=== PATIENT | female | born 2000 | race Caucasian/White ===

== ENCOUNTER 2021-08-26 19:22 | Emergency (ER) | payer BC, OTHER ==
[~2021-08-26] VITALS: Ht 175.3 cm; Wt 86.2 kg
--- OUTSIDE RECORDS SUMMARY | 2021-08-26 19:28 | XMS REPORT ---
Author Author Corina Campa Organization [facility] Address [address] [place], [place] [id number] Care Team Providers Care Plant Puller Name Role Phone Odilia Campa PCP Odilia Campa PreferredProvider Allergies and Adverse Reactions Name Reaction Notes hydrocodone-acetaminophen vomiting Plan of Treatment Planned Activity Comments Planned Date Planned Time Plan/Goal Injection Of Immunization, Initial 07/23/2020 12:00 AM VITAMIN B12 & FOLATE 08/13/2021 12:00 AM VITAMIN B12 & FOLATE 08/13/2021 12:00 AM VITAMIN D (25 HYDROXY) 08/13/2021 12:00 AM Medications Active Name Start Date Estimated Completion Date SIG Co mments Pantoprazole Sodium 40 MG Oral Tablet Delayed Release 05/14/2021 09/11/2021 Take 1 tablet by mouth once daily for 30 days Gas Relief (simethicone) oral OTC cetirizine 10 mg tablet take 1 tablet (10 mg) by oral route once daily famotidine 40 mg oral tablet 05/31/2021 09/28/2021 alberto e 1 tablet (40 mg) by oral route once daily at bedtime for 30 days lactase 3,000 unit oral tablet take 1 tab let by oral route daily citalopram 40 mg oral tablet 07/10/2021 11/07/2021 alberto e 1 tablet (40 mg) by oral route once daily for 30 days Sprintec (28) 0.25-35 mg-mcg oral tablet 07/24/2021 take 1 tablet by oral route once daily for 84 days montelukast 10 mg oral tablet 08/13/2021 09/12/2021 ta ke 1 tablet (10 mg) by oral route once daily in the evening for 30 days Seroquel 25 mg oral tablet 08/13/2021 09/12/2021 take 1 tablet (25 mg) by oral route once daily at bedtime Name Start Date Expiration Date SIG Comments Lo Loestrin Fe 1 mg-10 mcg (24)/10 mcg (2) oral tablet 08/31/2015 09/30/2015 take 1 tablet by oral route once daily for 30 days Depo-Provera 150 mg/mL intramuscular suspension 10/16/2015 01/14/2016 inject 1 milliliter (150 mg) by intramuscular route every 3 months for 90 days albuterol sulfate 0.63 mg/3 mL inhalation solution for nebul ization 11/01/2015 12/01/2015 use HFA Q 4-5 Hrs PRN shortness of air benzonatate 100 mg oral capsule 08/06/2018 08/20/2018 Take 1 tab at night prior to bed Prozac 10 mg oral capsule 12/15/2018 12/29/2018 take 1 take 1 capsule daily x 1week then everyother day x 1 week Bactrim DS 800-160 mg oral tablet 06/14/2019 06/21/2019 take 1 tablet by oral route every 12 hours for 7 days prednisone 20 mg oral tablet 10/31/2019 11/05/2019 alberto e 2 tablets (40 mg) by oral route once daily for 5 days Augmentin 875-125 mg oral tablet 10/31/2019 11/07/2019 take 1 tablet by oral route every 12 hours for 7 days Diflucan 150 mg oral tablet 01/13/2020 take 1 tablet (150 mg) by oral route once, repeat in 72 hours Reglan 5 mg oral tablet 03/27/2020 04/26/2020 take 1 tablet AC azithromycin 500 mg oral tablet 06/20/2020 06/21/2020 take 4 tablets (2,000 mg) by oral route once for 1 day Bactrim DS 800-160 mg oral tablet 06/23/2020 06/30/2020 take 1 tablet by oral route every 12 hours for 7 days Provera 10 mg oral tablet 06/27/2020 07/07/2020 take 1 tablet (10 mg) by oral route once daily for 10 days azithromycin 500 mg oral tablet 06/27/2020 06/28/2020 take 2 tablets (1,000 mg) by oral route once for 1 day trazodone 50 mg oral tablet 10/04/2020 02/01/2021 take 1-2 tablet by oral route once daily at bedtime for 30 days dicyclomine 10 mg oral capsule 01/15/2021 03/16/2021 t germaine 1 capsule (10 mg) by oral route AC and HS day for 30 days Xifaxan oral tablet 550 mg 05/17/2021 05/31/2021 take 1 tablet (550 mg) by oral route 3 times per day for 14 days Solosec 2 gram oral granules del release in packet 07/09/2021 07/10/2021 take 1 packet (2 gram) and sprinkle contents onto applesauce, yogurt or pudding and take within 30 minutes by oral route once for 1 day Flagyl 500 mg oral tablet 07/10/2021 07/17/2021 take 1 tablet (500 mg) by oral route 2 times per day for 7 days Discontinued Name Start Date Discontinued Date SIG Comments ibuprofen 200 mg oral tablet 04/08/2017 alberto e 2 tablets (400 mg) by oral route every 4-6 hours as needed with food Zyrtec 10 mg oral tablet 03/15/2020 take 1 tablet (10 mg) by oral route once daily not taking tretinoin 0.01 % topical gel 11/19/2018 05/05/2019 qian ly to the affected area(s) by topical route once daily at bedtime Depo-Provera 150 mg/mL intramuscular suspension 05/05/2019 03/15/2020 inject 1 milliliter (150 mg) by intramuscular route every 3 months Lexapro 10 mg oral tablet 08/24/2019 12/02/2019 take 1 tablet (10 mg) by oral route once daily for 30 days Vraylar 1.5 mg oral capsule 04/10/2020 04/10/2020 take 1 capsule (1.5 mg) by oral route once daily for 30 days Lexapro 20 mg oral tablet 03/15/2020 03/15/2020 take 1 tablet (20 mg) by oral route once daily for 30 days escitalopram oxalate 20 mg oral tablet 02/02/2020 03/15/2020 TAKE 1 TABLET BY MOUTH ONCE DAILY FOR 30 DAYS Vraylar 3 mg oral capsule 04/10/2020 05/14/2020 take 1 capsule (3 mg) by oral route once daily for 30 days Celexa 20 mg oral tablet 04/10/2020 08/08/2020 take 1 tablet (20 mg) by oral route once daily for 30 days ondansetron mg oral tablet,disintegrating 04/10/20202019 Take one tablet every 8 hours as needed nausea dicyclomine 10 mg oral capsule 05/02/2020 05/16/2020 t germaine 1 capsule by oral route for 30 days AC and HS cephalexin 500 mg oral capsule 06/20/2020 06/27/2020 t germaine 1 capsule (500 mg) by oral route every 12 hours for 10 days Citalopram Hydrobromide 20 MG Oral Tablet 08/06/2020 020 Take 1 tablet by mouth once daily for 30 days lorazepam 0.5 mg oral tablet 10/04/2020 06/27/2021 alberto e 1 tablet (0.5 mg) by oral route 2 times per day as needed not taking ondansetron 8 mg oral tablet,disintegrating 10/04/20202020 one tablet every 8 hours as needed for nausea not taking Problem List Description Status Onset Diarrhea, unspecified type Active 06/27/2021 Epigastric pain Active 06/27/2021 Vital Signs Date Time BP-Sys(mm[Hg] BP-Hayley(mm[Hg]) HR(bpm) RR(rpm) Temp WT HT HC BMI BSA BMI Percentile O2 Sat(%) 08/13/2021 4:50:00 PM 120 mm[Hg] 74 mm[Hg] 63 {beats}/min 98.1 F 203.125 lbs 69 in 29.996 kg/m2 2.1179 m2 99 % 07/23/2021 2:03:00 PM 115 mm[Hg] 80 mm[Hg] 76 {beats}/min 98.2 F 20 0 lbs 69 in 29.53 kg/m2 2.10 m2 07/09/2021 2:39:00 PM 116 mm[Hg] 72 mm[Hg] 80 {beats}/min 98.8 F 20 2 lbs 69 in 29.8299 kg/m2 2.112 m2 06/27/2021 9:40:00 AM 110 mm[Hg] 60 mm[Hg] 63 {beats}/min 98.418 F 198 lbs 69 in 29.24 kg/m2 2.09 m2 98 % 05/31/2021 12:00:00 PM 118 mm[Hg] 70 mm[Hg] 72 {beats}/min 18 rpm 98.1 F 204 lbs 69 in 30.1252 kg/m2 2.1225 m2 96 % 05/17/2021 11:49:00 AM 124 mm[Hg] 70 mm[Hg] 68 {beats}/min 18 rpm 98.6 F 203 lbs 69 in 29.98 kg/m2 2.12 m2 98 % 02/25/2021 12:11:00 PM 122 mm[Hg] 72 mm[Hg] 80 {beats}/min 18 rpm 98.8 F 197.5 lbs 69 in 29.1654 kg/m2 2.0884 m2 98 % 01/17/2021 1:43:00 PM 89 {beats}/min 98.8 F 97 % 01/15/2021 11:29:00 AM 124 mm[Hg] 66 mm[Hg] 70 {beats}/min 18 rpm 97.5 F 200 lbs 69 in 29.53 kg/m2 2.1015 m2 97 % 11/30/2020 4:48:00 PM 126 mm[Hg] 70 mm[Hg] 71 {beats}/min 18 rpm 98.1 F 199.25 lbs 69 in 29.42 kg/m2 2.10 m2 97 % 10/30/2020 12:40:00 PM 65 {beats}/min 98.2 F 98 % 10/04/2020 11:15:00 AM 122 mm[Hg] 64 mm[Hg] 91 {beats}/min 18 rpm 98.1 F 191.5 lbs 69 in 28.2793 kg/m2 2.0564 m2 0 % 96 % 09/03/2020 4:04:00 PM 110 mm[Hg] 70 mm[Hg] 112 {beats}/min 18 rpm 98.6 F 191.5 lbs 69 in 28.28 kg/m2 2.06 m2 0 % 98 % 08/08/2020 1:31:00 PM 133 mm[Hg] 74 mm[Hg] 60 {beats}/min 97.9 F 188.5 lbs 69 in 27.8363 kg/m2 2.0402 m2 89 % 06/27/2020 9:14:00 AM 120 mm[Hg] 74 mm[Hg] 82 {beats}/min 97.2 F 184 lbs 69 in 27.17 kg/m2 2.02 m2 0 % 06/20/2020 3:40:00 PM 122 mm[Hg] 78 mm[Hg] 98 {beats}/min 18 rpm 98.7 F 188.375 lbs 60 in 36.7891 kg/m2 1.9019 m2 0 % 100 % 04/17/2020 11:27:00 AM 116 mm[Hg] 66 mm[Hg] 79 {beats}/min 16 rpm 97.3 F 188 lbs 69 in 27.76 kg/m2 2.04 m2 89.1 % 98 % 04/10/2020 11:18:00 AM 126 mm[Hg] 70 mm[Hg] 67 {beats}/min 18 rpm 97.7 F 188.25 lbs 69 in 27.7994 kg/m2 2.0389 m2 89.3 % 100 % 03/27/2020 11:41:00 AM 104 mm[Hg] 60 mm[Hg] 80 {beats}/min 16 rpm 97.7 F 189 lbs 69 in 27.91 kg/m2 2.04 m2 89.6 % 97 % 03/15/2020 12:08:00 PM 118 mm[Hg] 76 mm[Hg] 61 {beats}/min 18 rpm 97.8 F 96 % 01/13/2020 3:41:00 PM 118 mm[Hg] 72 mm[Hg] 84 {beats}/min 17 rpm 98.2 F 186.5 lbs 60 in 36.4229 kg/m2 1.8924 m2 97.6 % 99 % 01/02/2020 10:46:00 AM 122 mm[Hg] 66 mm[Hg] 98 {beats}/min 18 rpm 98.2 F 181 lbs 69 in 26.73 kg/m2 2.00 m2 86.6 % 98 % 12/02/2019 10:07:00 AM 114 mm[Hg] 72 mm[Hg] 72 {beats}/min 18 rpm 98.1 F 182.75 lbs 69 in 26.9872 kg/m2 2.0089 m2 87.5 % 97 % 10/31/2019 7:31:00 PM 134 mm[Hg] 88 mm[Hg] 98 {beats}/min 16 rpm 98.1 F 186.375 lbs 69 in 27.52 kg/m2 2.03 m2 89.1 % 97 % 09/30/2019 11:21:00 AM 122 mm[Hg] 66 mm[Hg] 73 {beats}/min 18 rpm 98.1 F 183 lbs 69 in 27.0241 kg/m2 2.0102 m2 87.8 % 98 % 08/24/2019 1:19:00 PM 124 mm[Hg] 68 mm[Hg] 97 {beats}/min 18 rpm 98.1 F 180.375 lbs 69 in 26.64 kg/m2 2.00 m2 86.8 % 97 % 07/22/2019 10:54:00 AM 124 mm[Hg] 66 mm[Hg] 87 {beats}/min 18 rpm 98.6 F 176 lbs 69 in 25.9904 kg/m2 1.9714 m2 84.6 % 98 % 06/14/2019 2:54:00 PM 114 mm[Hg] 74 mm[Hg] 87 {beats}/min 14 rpm 98.1 F 176 lbs 69 in 25.99 kg/m2 1.97 m2 84.7 % 97 % 05/05/2019 11:36:00 AM 122 mm[Hg] 70 mm[Hg] 89 {beats}/min 18 rpm 98.1 F 174 lbs 69 in 25.695 kg/m2 1.9602 m2 83.7 % 98 % 02/15/2019 2:09:00 PM 118 mm[Hg] 70 mm[Hg] 82 {beats}/min 16 rpm 98.6 F 169 lbs 69 in 24.96 kg/m2 1.93 m2 80.6 % 98 % 12/15/2018 9:52:00 AM 130 mm[Hg] 80 mm[Hg] 62 {beats}/min 18 rpm 98.6 F 162 lbs 69 in 23.923 kg/m2 1.8914 m2 74.8 % 98 % 12/10/2018 2:24:00 PM 120 mm[Hg] 80 mm[Hg] 77 {beats}/min 16 rpm 98.6 F 165 lbs 69 in 24.37 kg/m2 1.91 m2 77.7 % 98 % 08/06/2018 2:20:00 PM 102 mm[Hg] 60 mm[Hg] 64 {beats}/min 16 rpm 98 F 155.25 lbs 69 in 22.9262 kg/m2 1.8516 m2 67.9 % 98 % 07/20/2018 2:21:00 PM 110 mm[Hg] 70 mm[Hg] 86 {beats}/min 16 rpm 98.1 F 156.375 lbs 69 in 23.09 kg/m2 1.86 m2 69.5 % 99 % 07/12/2018 9:11:00 AM 108 mm[Hg] 70 mm[Hg] 81 {beats}/min 16 rpm 98.6 F 160 lbs 69 in 23.6276 kg/m2 1.8797 m2 73.8 % 96 % 07/02/2018 3:00:00 PM 142 mm[Hg] 90 mm[Hg] 97 {beats}/min 16 rpm 99 F 161.375 lbs 69 in 23.83 kg/m2 1.89 m2 75.3 % 97 % 01/26/2018 10:59:00 AM 124 mm[Hg] 78 mm[Hg] 78 {beats}/min 18 rpm 98.5 F 164.5 lbs 69 in 24.2922 kg/m2 1.9059 m2 79.3 % 99 % 06/02/2017 3:54:00 PM 124 mm[Hg] 62 mm[Hg] 67 {beats}/min 18 rpm 99.3 F 159.5 lbs 69 in 23.55 kg/m2 1.88 m2 76.6 % 98 % 04/08/2017 1:25:00 PM 112 mm[Hg] 82 mm[Hg] 72 {beats}/min 16 rpm 159.125 lbs 69 in 23.4984 kg/m2 1.8745 m2 76.7 % 98 % 10/31/2015 4:14:00 PM 118 mm[Hg] 60 mm[Hg] 73 {beats}/min 18 rpm 98 F 153 lbs 69 in 22.59 kg/m2 1.84 m2 75.8 % 100 % 10/16/2015 2:31:00 PM 102 mm[Hg] 68 mm[Hg] 72 {beats}/min 18 rpm 98.1 F 154.25 lbs 69 in 22.7785 kg/m2 1.8456 m2 77.3 % 97 % 08/31/2015 4:03:00 PM 110 mm[Hg] 70 mm[Hg] 83 {beats}/min 18 rpm 98.4 F 156.375 lbs 69 in 23.09 kg/m2 1.86 m2 79.8 % 99 % Social History Name Description Comments Tobacco Never smoker 01/15/2021 - /2020 - 10/04/2020 - 09/30/2019 - 07/22/2019 - Vapor Cigarettes Never 01/15/2021 - History of Procedures Date Ordered Description Order Status 08/31/2015 12:00 AM URINE TEST Reviewed 10/16/2015 12:00 AM URINE TEST Reviewed 10/16/2015 12:00 AM THER/PROPH/DIAG INJ SC/IM Reviewed 10/16/2015 12:00 AM Depo Provera Injection, 150 mg Reviewed 01/17/2016 12:00 AM THER/PROPH/DIAG INJ SC/IM Reviewed 01/17/2016 12:00 AM Depo Provera Injection, 150 mg Reviewed 04/10/2016 12:00 AM THER/PROPH/DIAG INJ SC/IM Reviewed 04/10/2016 12:00 AM Depo Provera Injection, 150 mg Reviewed 07/09/2016 12:00 AM THER/PROPH/DIAG INJ SC/IM Reviewed 07/09/2016 12:00 AM Depo Provera Injection, 150 mg Reviewed 10/13/2016 12:00 AM THER/PROPH/DIAG INJ SC/IM Reviewed 10/13/2016 12:00 AM Depo Provera Injection, 150 mg Reviewed 01/12/2017 12:00 AM THER/PROPH/DIAG INJ SC/IM Reviewed 01/12/2017 12:00 AM Depo Provera Injection, 150 mg Reviewed 04/08/2017 12:00 AM Depo Provera Injection, 150 mg Reviewed 04/08/2017 12:00 AM THER/PROPH/DIAG INJ SC/IM Reviewed 04/08/2017 12:00 AM Depo Provera Injection, 150 mg Reviewed 07/08/2017 12:00 AM THER/PROPH/DIAG INJ SC/IM Reviewed 07/08/2017 12:00 AM Depo Provera Injection, 150 mg Reviewed 12/30/2017 12:00 AM THER/PROPH/DIAG INJ SC/IM Reviewed 12/30/2017 12:00 AM Depo Provera Injection, 150 mg Reviewed 03/24/2018 12:00 AM THER/PROPH/DIAG INJ SC/IM Reviewed 03/24/2018 12:00 AM Depo Provera Injection, 150 mg Reviewed 07/20/2018 12:00 AM URNLS DIP STICK/TABLET RGNT AUTO W/O SOPHIE ROSCOPY Returned 08/16/2018 12:00 AM IMMUNIZATION ADMIN Reviewed 08/16/2018 12:00 AM FLU VAC NO PRSV 4 SHANE 3 YRS+ Reviewed 11/19/2018 12:00 AM THER/PROPH/DIAG INJ SC/IM Reviewed 11/19/2018 12:00 AM Depo Provera Injection, 150 mg Reviewed 12/10/2018 12:00 AM COMPLETE CBC W/AUTO DIFF WBC Returned 12/10/2018 12:00 AM COMPREHEN METABOLIC PANEL Returned 12/10/2018 12:00 AM ASSAY OF FREE THYROXINE Returned 12/10/2018 12:00 AM ASSAY THYROID STIM HORMONE Returned 12/13/2018 12:00 AM ECHO EXAM OF ABDOMEN Returned 12/15/2018 12:00 AM COMPLETE CBC W/AUTO DIFF WBC Returned 12/15/2018 12:00 AM COMPREHEN METABOLIC PANEL Returned 12/15/2018 12:00 AM ASSAY OF LIPASE Returned 12/15/2018 12:00 AM CHORIONIC GONADOTROPIN TEST Returned 12/15/2018 12:00 AM HIV-1 AG EIA Returned 12/15/2018 12:00 AM ACUTE HEPATITIS PANEL Returned 12/15/2018 12:00 AM SYPHILIS TEST NON-TREP QUANT Returned 12/16/2018 12:00 AM IADNA-DNA/RNA PROBE TQ 12-25 Returned 12/31/2018 12:00 AM COMPREHEN METABOLIC PANEL Returned 12/31/2018 12:[address] ABDOMEN W/O & W/DYE Returned 01/12/2019 12:00 AM COMPREHEN METABOLIC PANEL Returned 01/13/2019 12:00 AM Consult/Referral Reviewed 01/14/2019 12:00 AM Tick Panel Returned 01/26/2019 12:00 AM HETEROPHILE ANTIBODY SCREEN Returned 02/15/2019 12:00 AM THER/PROPH/DIAG INJ SC/IM Reviewed 02/15/2019 12:00 AM Depo Provera Injection, 150 mg Reviewed 05/05/2019 12:00 AM Depo Provera Injection, 150 mg Reviewed 06/14/2019 12:00 AM URINE CULTURE/COLONY COUNT Reviewed 07/22/2019 12:00 AM COMPLETE CBC W/AUTO DIFF WBC Reviewed 07/22/2019 12:00 AM COMPREHEN METABOLIC PANEL Reviewed 07/22/2019 12:00 AM ASSAY THYROID STIM HORMONE Reviewed 07/22/2019 12:00 AM HEPATIC FUNCTION PANEL Reviewed 07/22/2019 12:00 AM Depo Provera Injection, 150 mg Reviewed 07/22/2019 12:00 AM HPV VACCINE NON VALENT IM Reviewed 07/22/2019 12:00 AM MENINGOCOCCAL VACCINE IM Reviewed 07/22/2019 12:00 AM FLU VAC NO PRSV 4 SHANE 3 YRS+ Reviewed 08/22/2019 12:00 AM HPV VACCINE NON VALENT IM Reviewed 08/22/2019 12:00 AM THER/PROPH/DIAG INJ SC/IM Reviewed 10/10/2019 12:00 AM THER/PROPH/DIAG INJ SC/IM Reviewed 10/10/2019 12:00 AM Depo Provera Injection, 150 mg Reviewed 01/02/2020 12:00 AM Depo Provera Injection, 150 mg Reviewed 01/02/2020 12:00 AM THER/PROPH/DIAG INJ SC/IM Reviewed 01/13/2020 3:47 PM URINALYSIS AUTO W/O SCOPE Reviewed 01/13/2020 12:00 AM ALLERGEN SPECIFIC IGE Returned 01/13/2020 12:00 AM COMPREHEN METABOLIC PANEL Returned 01/13/2020 12:00 AM ASSAY THYROID STIM HORMONE Returned 01/27/2020 12:00 AM IMMUNIZATION ADMIN Reviewed 01/27/2020 12:00 AM HPV VACCINE NON VALENT IM Reviewed 03/15/2020 12:00 AM COMPLETE CBC W/AUTO DIFF WBC Returned 03/15/2020 12:00 AM COMPREHEN METABOLIC PANEL Returned 03/15/2020 12:00 AM FECES CULTURE AEROBIC BACT Returned 03/15/2020 12:00 AM X-RAY EXAM SERIES ABDOMEN Returned 05/09/2020 12:00 AM SARS-CoV-2 non-CDC lab test Returned 06/20/2020 3:41 PM URINALYSIS AUTO W/O SCOPE Reviewed 06/20/2020 12:00 AM URINE CULTURE/COLONY COUNT Returned 06/20/2020 12:00 AM URINE BACTERIA CULTURE Returned 06/20/2020 12:00 AM THER/PROPH/DIAG INJ SC/IM Reviewed 06/20/2020 12:00 AM Rocephin 250 Mg Injection Reviewed 07/23/2020 12:00 AM FLU VAC NO PRSV 4 SHANE 3 YRS+ Reviewed 08/08/2020 1:58 PM URINE TEST Reviewed 08/08/2020 12:00 AM CHLAMYDIA CULTURE Reviewed 08/08/2020 12:00 AM CULTURE SCREEN ONLY Reviewed 08/08/2020 12:00 AM TRICHOMONAS VAGINALIS AMPLIF Reviewed 10/30/2020 12:00 AM COVID-19 Testing Returned 10/24/2020 12:00 AM Moderna Covid-19 Vaccine Reviewed 11/21/2020 12:00 AM Moderna Covid-19 Vaccine Reviewed 01/17/2021 12:00 AM COVID-19 Testing Reviewed 02/25/2021 12:00 AM X-RAY EXAM OF FOOT Reviewed 05/17/2021 12:00 AM ECHO EXAM OF ABDOMEN Returned 05/17/2021 12:00 AM COMPLETE CBC W/AUTO DIFF WBC Returned 05/17/2021 12:00 AM COMPREHEN METABOLIC PANEL Returned 05/17/2021 12:00 AM ASSAY OF LIPASE Returned 05/17/2021 12:00 AM ASSAY OF AMYLASE Returned 05/31/2021 12:00 AM IADNA-DNA/RNA PROBE TQ 10-19 Returned 06/12/2021 12:00 AM ACUTE HEPATITIS PANEL Returned 07/09/2021 12:00 AM ASSAY OF GONADOTROPIN ([facility]) Reviewed 07/09/2021 12:00 AM ASSAY OF GONADOTROPIN (LH) Reviewed 07/09/2021 12:00 AM ASSAY THYROID STIM HORMONE Reviewed 07/24/2021 12:00 AM SPECIMEN HANDLING OFFICE-LAB Reviewed 07/24/2021 12:00 AM CHLAMYDIA CULTURE Reviewed 07/24/2021 12:00 AM N.GONORRHOEAE DNA AMP PROB Reviewed 07/24/2021 12:00 AM CYTOPATH C/V THIN LAYER Reviewed 07/24/2021 12:00 AM DETECT AGENT NOS DNA AMP Reviewed 07/24/2021 12:00 AM TRICHOMONAS VAGINALIS AMPLIF Reviewed 08/13/2021 12:00 AM INFLUENZA VAC 4 VALENT PRSRV FREE 3 YRS PLUS IM Reviewed Results Summary Date and Description Results 07/22/2019 11:58 AM WBC 4.4 RBC 4.90 HGB 14.60 g /dLHCT 43.70 %MCV 89.0 fLMCH 29.80 pgMCHC 33.40 g/dLRDW SD 38 fLRDW CV 11.70 %MPV 9.40 fLPLT 250 x10E3/uLNRBC# 0.00 NRBC% 0.0 %NEUT 53.3 %LYMP 30.7 %MONO 11.4 %EOS 3.0 %BASO 0.9 #NEUT 2.33 #LYMP 1.34 #MONO 0.50 #EOS 0.13 #BASO 0.04 MANUAL DIFF NOT IND GLUCOSE 92 SODIUM 138 POTASSIUM 4.3 CHLORIDE 105.0 mmol/LCO2 23 BUN 10.0 mg/dLCREATININE 0.790 mg/dLSGOT/AST 90 SGPT/ALT 53 ALK PHOS 66 TOTAL PROTEIN 7.7 ALBUMIN 4.9 TOTAL BILI 0.5 CALCIUM 10.10 mg/dLAGE 19 GFR NonAA 94 GFR AA 114 eGFR 94 mL/min/1.73meGFR AA* >60 mL/min/1.73mTSH 1.66 01/13/2020 3:47 PM Clarity Ur Clear Urine-Color Yellow Glucose Ur-sCnc Neg Bilirub Ur Ql Neg Ketones Ur Ql Strip Neg Sp Gr Ur Qn >=1.030 Hgb Ur Ql Strip Neg pH Ur-LsCnc 6.0 Prot Ur Ql Strip Neg Urobilinogen Ur-mCnc 0.2 Nitrite Ur Ql Strip Neg WBC # Ur Trace 06/20/2020 3:47 PM Clarity Ur Cloudy Urine-[place] r Yellow Glucose Ur-sCnc Neg Bilirub Ur Ql Neg Ketones Ur Ql Strip Trace Sp Gr Ur Qn 1.015 Hgb Ur Ql Strip Trace-Intact pH Ur-LsCnc 6,0 Prot Ur Ql Strip 100 Urobilinogen Ur-mCnc 0.2 Nitrite Ur Ql Strip Neg WBC # Ur Moderate 08/08/2020 1:58 PM Test, Urine negati ve 01/17/2021 9:54 AM [id number] NOT DETECTED 07/09/2021 3:30 PM FSH 1.4 TSH W/REFLEX 2.14 History Of Immunizations Name Date Admin Mfg Name Mfg Code Trade Name Lot# Route Inj Vis Given Vis Pub CVX Influenza 08/16/2018 [employer] SKB FLULAVAL [id number] Intramuscu lar Left Deltoid 08/16/2018 10/26/2021 158 Influenza 07/22/2019 [employer]Smith[employer] SKB FLULAVAL [id number] Intramuscul ar Left Deltoid 07/22/2019 10/26/2021 150 HPV 07/22/2019 [employer] MSD Gardasil 9 [id number] Intramusc ular Left Deltoid 07/22/2019 10/26/2021 165 HPV 07/22/2019 [employer] MSD Gardasil 9 [id number] Intramusc ular Left Deltoid 07/22/2019 10/26/2021 165 Meningococcal 07/22/2019 [employer] NOV MENVEO [id number] Intramuscular Right Arm 07/22/2019 10/26/2021 136 HPV 08/22/2019 [employer] MSD GARDASIL [id number] Intramuscu lar Right Arm 08/22/2019 10/26/2021 165 HPV 08/22/2019 [employer] MSD Gardasil 9 [id number] Intramus cular Left Arm 08/24/2019 10/26/2021 165 HPV 08/22/2019 [employer] MSD Gardasil 9 [id number] Intramus cular Left Arm 08/24/2019 10/26/2021 165 HPV 01/27/2020 [employer] MSD Gardasil 9 [id number] Intramuscu lar Left Deltoid 01/27/2020 10/26/2021 165 Influenza 07/23/2020 GlaxoSmith[employer] SKB FLULAVAL [id number] Intramuscul ar Left Arm 07/23/2020 10/26/2021 158 Covid-19 10/24/2020 Moderna [employer] MOD Moderna COVID-19 Vacci ne [id number] Intramuscular Left Arm 10/24/2020 09/25/2020 207 Covid-19 11/21/2020 Moderna [employer] MOD Moderna COVID-19 Vaccin e [id number] Intramuscular Right Deltoid 11/21/2020 09/25/2020 207 Influenza 08/13/2021 Gl[employer]Smith[employer] SKB Flulaval quadrivalent 3 [id number] Intramuscular Right Deltoid 08/13/2021 05/31/2021 158 History of Past Illness Name Date of Onset Comments Bronchitis Constipation IBS (irritable bowel syndrome) Diarrhea, unspecified type 06/27/2021 Epigastric pain 06/27/2021 Missed menses Aug 31 2015 4:04PM Abnormal menses Aug 31 2015 4:04PM Contraceptive use education Aug 31 2015 4:04PM Acne vulgaris Oct 16 2015 2:37PM Encounter for initial prescription of injectable contr aceptive Oct 16 2015 2:37PM Contraceptive counseling (Depo-Provera) Oct 16 2015 3:23PM Acute nasopharyngitis Oct 31 2015 4:17PM Viral gastroenteritis Oct 31 2015 4:17PM Cough Oct 31 2015 4:17PM Contraceptive counseling (Depo-Provera) Jan 17 2016 1:58PM Contraceptive counseling (Depo-Provera) Apr 10 2016 2:47PM Contraceptive counseling (Depo-Provera) Jul 09 2016 9:00AM Contraceptive counseling (Depo-Provera) Oct 13 2016 1:34PM Contraceptive counseling (Depo-Provera) Jan 12 2017 1:15PM Contraception management Apr 08 2017 1:28PM Contraceptive counseling (Depo-Provera) Apr 08 2017 2:38PM Acute upper respiratory infection, unspecified Jun 02 2017 3:57PM Other viral agents as the cause of diseases classified elsewhere Jun 02 2017 3:57PM Contraceptive counseling (Depo-Provera) Jul 08 2017 1:25PM Contraceptive counseling (Depo-Provera) Oct 06 2017 2:18PM Contraceptive counseling (Depo-Provera) Dec 30 2017 3:48PM Acute upper respiratory infection, unspecified Jan 26 2018 1 1:02AM Other viral agents as the cause of diseases classified elsewhere Jan 26 2018 11:02AM Contraceptive counseling (Depo-Provera) Mar 24 2018 1:30PM Contraceptive counseling (Depo-Provera) Jun 09 2018 4:22PM Grief reaction Jul 02 2018 3:05PM Situational depression Jul 02 2018 3:05PM Grief reaction Jul 12 2018 9:20AM Depression Jul 20 2018 2:28PM Anxiety Jul 20 2018 2:28PM Polyuria Jul 20 2018 2:28PM Polyuria Jul 20 2018 4:23PM Depression Aug 06 2018 2:24PM Acute upper respiratory infection, unspecified Aug 06 2018 2:24PM Other viral agents as the cause of diseases classified elsewhere Aug 06 2018 2:24PM Flu Vaccine Aug 16 2018 10:51AM Contraceptive counseling (Depo-Provera) Aug 25 2018 12:20PM Contraceptive counseling (Depo-Provera) Nov 19 2018 9:07AM Fatigue Dec 10 2018 2:28PM Diarrhea Dec 10 2018 2:28PM Depression Dec 10 2018 2:28PM Transaminitis Dec 13 2018 8:10AM Vomiting Dec 13 2018 8:10AM Diarrhea Dec 13 2018 8:10AM Vomiting Dec 15 2018 9:54AM Nausea Dec 15 2018 9:54AM Diarrhea Dec 15 2018 9:54AM High risk sexual behavior Dec 15 2018 9:54AM Transaminitis Dec 15 2018 9:54AM Depression Dec 15 2018 9:54AM Diarrhea Dec 16 2018 12:10PM Elevated liver enzymes Dec 31 2018 7:55AM Transaminitis Dec 31 2018 5:07PM Elevated liver enzymes Jan 12 2019 9:49AM Transaminitis Jan 14 2019 9:44AM Fatigue Jan 14 2019 9:44AM Fatigue Jan 26 2019 8:17AM Contraceptive counseling (Depo-Provera) Feb 15 2019 9:12AM Encounter for occupational health examination Feb 15 2019 2 :11PM Encounter for surveillance of injectable contraceptive Apr 252018 11:36AM Lower abdominal pain Jun 14 2019 2:56PM Dysuria Jun 14 2019 2:56PM Establishing care with new doctor, encounter for Jul 22 2019 10:56AM Routine health maintenance Jul 22 2019 10:56AM Encounter for surveillance of injectable contraceptive Jun 272018 10:56AM Need for HPV vaccine Aug 22 2019 12:38PM Anxiety Aug 24 2019 1:21PM Anxiety Sep 30 2019 11:23AM Contraceptive counseling (Depo-Provera) Oct 10 2019 4:01PM Acute pansinusitis Oct 31 2019 7:33PM 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 Anxiety Dec 02 2019 10:10AM Anxiety Jan 02 2020 10:47AM Depression Jan 02 2020 10:47AM Contraception management Jan 02 2020 10:47AM Vaginal hakeem Jan 13 2020 3:47PM Elevated liver enzymes Jan 13 2020 3:47PM Screening for thyroid disorder Jan 13 2020 3:47PM Need for HPV vaccination Jan 27 2020 1:44PM Diarrhea Mar 15 2020 12:08PM Vomiting Mar 15 2020 12:08PM Anxiety Mar 15 2020 12:08PM control counseling Mar 15 2020 12:08PM Depression Apr 10 2020 11:19AM Anxiety Apr 10 2020 11:19AM Diarrhea, unspecified type Mar 27 2020 11:43AM Nausea Mar 27 2020 11:43AM Dyspepsia Mar 27 2020 11:43AM Functional diarrhea Apr 17 2020 11:27AM Irritable bowel syndrome with diarrhea Apr 17 2020 11:27AM Close exposure to severe acute respiratory syndrome co ronavirus 2 (SARS-CoV-2) May 09 2020 4:02PM Anxiety May 16 2020 8:39AM IBS (irritable bowel syndrome) May 16 2020 8:39AM Dysuria Jun 20 2020 3:41PM Urinary Tract Infection, Site Not Specified Jun 20 2020 3:4 1PM Vaginal discharge Jun 20 2020 3:41PM Amenorrhea Jun 27 2020 9:20AM Chlamydia Jun 27 2020 9:20AM Contraception management Jun 27 2020 9:20AM Vaginal Discharge Jun 27 2020 9:20AM Flu Vaccine Jul 23 2020 7:42PM History of chlamydia infection Aug 08 2020 1:34PM Contraceptive management Aug 08 2020 1:34PM Amenorrhea Aug 08 2020 1:34PM Anxiety Sep 03 2020 4:03PM Depression Sep 03 2020 4:03PM Insomnia Sep 03 2020 4:03PM Weight gain Sep 03 2020 4:03PM Night sweats Sep 03 2020 4:03PM Anxiety Oct 04 2020 11:18AM Depression Oct 04 2020 11:18AM Insomnia Oct 04 2020 11:18AM Encounter for laboratory testing for COVID-19 virus Oct 30 8:05AM Cough Oct 30 2020 8:05AM Fatigue Oct 30 2020 8:05AM Myalgia Oct 30 2020 8:05AM Encounter for administration of COVID-19 vaccine Nov 13 2020 9:53AM Encounter for administration of COVID-19 vaccine Nov 20 2020 1:55PM Surgical wound present Nov 30 2020 4:50PM IBS (irritable bowel syndrome) Jan 15 2021 11:31AM Anxiety Jan 15 2021 11:31AM Depression Jan 15 2021 11:31AM Attention and concentration deficit Jan 15 2021 11:31AM Close exposure to severe acute respiratory syndrome co ronavirus 2 (SARS-CoV-2) Jan 17 2021 8:47AM Cough Jan 17 2021 8:47AM Congestion of respiratory tract Jan 17 2021 8:47AM Headache Jan 17 2021 8:47AM Pain of left heel Feb 25 2021 12:13PM IBS (irritable bowel syndrome) May 17 2021 11:52AM Nausea May 17 2021 11:52AM Diarrhea May 17 2021 11:52AM Abdominal pain May 17 2021 11:52AM Constipation May 17 2021 11:52AM Diarrhea May 31 2021 12:02PM IBS (irritable bowel syndrome) May 31 2021 12:02PM GERD (gastroesophageal reflux disease) May 31 2021 12:02PM Hepatomegaly Jun 12 2021 4:28PM Epigastric pain Jun 27 2021 9:50AM Diarrhea, unspecified type Jun 27 2021 9:50AM Hot flashes Jul 09 2021 3:11PM Acute vaginitis Jul 09 2021 2:44PM Other specified bacterial agents as the cause of disea ses classified elsewhere Jul 09 2021 2:44PM Hot flashes Jul 09 2021 2:44PM Excessive sweating Jul 09 2021 2:44PM Heat intolerance Jul 09 2021 2:44PM Routine gynecological examination Jul 23 2021 2:06PM Contraceptive management Jul 23 2021 2:06PM Hyperhidrosis Jul 23 2021 2:06PM Fatigue Aug 13 2021 4:53PM Anxiety Aug 13 2021 4:53PM Insomnia Aug 13 2021 4:53PM Depression Aug 13 2021 4:53PM Flu Vaccine Aug 13 2021 5:38PM Cough Aug 13 2021 4:53PM Sore throat Aug 13 2021 4:53PM Seasonal allergies Aug 13 2021 4:53PM Mood disorder Aug 13 2021 4:53PM Payers Insurance Name Company Name Plan Name Plan Number Policy Number Carlos cy Group Number Start Date BCBS Bcbs [facility] [id number] N/ A [facility] Med Occupational Medicine [id number] N/A History of Encounters Visit Date Visit Type Provider 08/13/2021 Office visit Odilia COREAS RN 07/23/2021 Office visit Sharon ruelas BENZENE STILL UTILITY OPERATOR 07/10/[address] [facility] [address] Billy Rogers MD 07/09/2021 Office visit Sharon ruelas BENZENE STILL UTILITY OPERATOR 06/27/[address] Billy Rogers MD 05/31/2021 Office visit Odilia COREAS RN 05/17/2021 Office visit Odilia COREAS RN 02/25/2021 Office visit Maricel Almanzar APR N 01/17/2021 Office visit Riya COREAS RN 01/15/2021 Office visit Odilia COREAS RN 11/30/2020 Office visit Riya COREAS RN 11/21/2020 Nurse visit Raj Moya MD 10/30/2020 Office visit Riya COREAS RN 10/24/2020 Nurse visit Raj Moya MD 10/04/2020 Office visit Odilia COREAS RN 09/03/2020 Office visit Odilia COREAS RN 08/08/2020 Office visit Sharon ruelas BENZENE STILL UTILITY OPERATOR 07/23/2020 Nurse visit Odilia COREAS RN 06/27/2020 Office visit Sharon ruelas BENZENE STILL UTILITY OPERATOR 06/20/2020 Office visit Riya COREAS RN 05/14/2020 Office visit Odilia COREAS RN 05/09/2020 Nurse visit Odilia COREAS RN 04/17/2020 Office visit Eliezer Rivas MD 04/10/2020 Office visit Odilia COREAS RN 03/27/2020 Office visit Eliezer Rivas MD 03/15/2020 Office visit Odilia COREAS RN 01/27/2020 Nurse visit Trung Quiroz APR N 01/13/2020 Office visit Odilia COREAS RN 01/02/2020 Office visit Odilia COREAS RN 12/02/2019 Office visit Odilia COREAS RN 10/31/2019 Office visit Odilia COREAS RN 10/10/2019 Nurse visit Odilia COREAS RN 09/30/2019 Office visit Odilia COREAS RN 08/24/2019 Office visit Odilia COREAS RN 08/22/2019 Nurse visit Odilia COREAS RN 07/22/2019 Office visit Odilia COREAS RN 06/14/2019 Office visit Leslie Kwok BENZENE STILL UTILITY OPERATOR 05/05/2019 Office visit Leslie Kwok BENZENE STILL UTILITY OPERATOR 02/15/2019 Office visit Leslie Kwok BENZENE STILL UTILITY OPERATOR 02/15/[address] Jessica Mera er DO 12/15/[address] Jessica Mera er DO 12/10/2018 Office visit 12/10/[address] Jessica Mera er DO 11/19/2018 Nurse visit Trung Quiroz APR N 08/25/2018 Nurse visit Maricel Almanzar APR N 08/16/[address] Jessica Mera er DO 08/06/[address] Jessica Mera er DO 07/20/[address] Jessica Mera er DO 07/12/[address] Jessica Mera er DO 07/02/[address] Jessica Mera er DO 06/09/[address] Jessica Mera er DO 03/24/[address] Jessica Mera er DO 01/26/[address] Jessica Mera er DO 12/30/[address] Jessica Mera er DO 10/06/[address] Jessica Mera er DO 07/08/[address] Jessica Mera er DO 06/02/[address] Jessica Mera er DO 04/08/[address] Jessica Mera er DO 01/12/2017 Nurse visit Trung Quiroz APR N 10/13/2016 Nurse visit Trung Quiroz APR N 07/09/[address] Jessica Mera er DO 04/10/[address] Jessica Mera er DO 01/17/[address] Jessica Mera er DO 10/31/[address] Jessica Mera er DO 10/16/[address] Jessica Mera er DO 08/31/[address] Jessica Mera er DO
--- OUTSIDE RECORDS SUMMARY | 2021-08-26 19:28 | XMS REPORT ---
Author Author Corina Campa Organization [facility] Address [address] [place], [place] [id number] Care Team Providers Care Water Conservationist Name Role Phone Odilia Campa PCP Odilia [...] Trace 06/20/2020 3:47 PM Clarity Ur Cloudy Urine-[place] r Yellow Glucose Ur-sCnc Neg Bilirub Ur Ql Neg Ketones Ur Ql Strip Trace Sp Gr Ur Qn 1.015 Hgb Ur Ql Strip Trace-Intact pH Ur-LsCnc 6,0 Prot Ur Ql Strip 100 Urobilinogen Ur-mCnc 0.2 Nitrite Ur Ql Strip Neg WBC # Ur Moderate 08/08/2020 1:58 PM Test, Urine negati ve 01/17/2021 9:54 AM [id number] NOT DETECTED 07/09/2021 3:30 PM FSH 1.4 [...] [employer] MSD Gardasil 9 [id number] Intramusc ular Left Deltoid 07/22/2019 10/26/2021 165 HPV 07/22/2019 [employer] MSD Gardasil 9 [id number] Intramusc ular Left Deltoid 07/22/2019 10/26/2021 165 Meningococcal 07/22/2019 [employer]. NOV MENVEO [id number] Intramuscular Right Arm 07/22/2019 10/26/2021 136 HPV 08/22/2019 [employer] MSD GARDASIL [id number] Intramuscu lar Right Arm 08/22/2019 10/26/2021 165 HPV 08/22/2019 [employer] MSD Gardasil 9 [id number] Intramus cular Left Arm 08/24/2019 10/26/2021 165 HPV 08/22/2019 [employer] MSD Gardasil 9 [id number] Intramus cular Left Arm 08/24/2019 10/26/2021 165 HPV 01/27/2020 [employer] MSD Gardasil 9 [id number] Intramuscu lar Left Deltoid 01/27/2020 10/26/2021 165 Influenza 07/23/2020 GlaxoSmithKline SKB FLULAVAL [id number] Intramuscul ar Left Arm 07/23/2020 10/26/2021 158 Covid-19 10/24/2020 Moderna [employer] MOD Moderna COVID-19 Vacci ne [id number] Intramuscular Left Arm 10/24/2020 09/25/2020 207 Covid-19 11/21/2020 Moderna [employer] MOD Moderna COVID-19 Vaccin e [id number] Intramuscular Right Deltoid 11/21/2020 09/25/2020 207 Influenza [...] 4:53PM Flu Vaccine Aug 13 2021 5:38PM Payers Insurance Name Company Name Plan Name Plan Number Policy Number Carlos cy Group Number Start Date BCBS Bcbs [facility] [id number] N/ A [facility] Occupational Medicine [id number] N/A History of Encounters Visit Date Visit Type Provider 08/13/2021 Office visit Odilia COREAS RN 07/23/2021 Office visit Sharon ruelas TECHNICAL CUSTOMER SUPPORT SPECIALIST 07/10/[address] [facility] [address] Billy Rogers MD 07/09/2021 Office visit Sharon ruelas TECHNICAL CUSTOMER SUPPORT SPECIALIST 06/27/[address] Billy Rogers MD [...] COREAS RN 08/08/2020 Office visit Sharon ruelas TECHNICAL CUSTOMER SUPPORT SPECIALIST 07/23/2020 Nurse visit Odilia COREAS RN 06/27/2020 Office visit Sharon ruelas TECHNICAL CUSTOMER SUPPORT SPECIALIST 06/20/2020 Office visit Riya COREAS RN 05/14/2020 [...] Odilia COREAS RN 06/14/2019 Office visit Leslie Sundar TECHNICAL CUSTOMER SUPPORT SPECIALIST 05/05/2019 Office visit Leslie Sundar TECHNICAL CUSTOMER SUPPORT SPECIALIST 02/15/2019 Office visit Leslie Kwok TECHNICAL CUSTOMER SUPPORT SPECIALIST 02/15/[address] Jessica Mera er [...] er DO 10/31/[address] Jessica eMra er DO 10/16/[address] Jessica Mera er DO 08/31/[address] Jessica Mear er DO
--- OUTSIDE RECORDS SUMMARY | 2021-08-26 19:28 | XMS REPORT ---
Author Corina Davies Organization [facility] Address [address] [place], [place] [id number] Care Team Providers Care Regional Recruiter Name Role Phone Sharon Mitchell PCP Odilia Campa PreferredProvider Allergies and Adverse Reactions Name Reaction Notes hydrocodone-acetaminophen vomiting Plan of Treatment Planned Activity Comments Planned Date Planned Time Plan/Goal Injection Of Immunization, Initial 07/23/2020 12:00 AM Chlamydia 07/24/2021 12:00 AM Gonorrhea 07/24/2021 12:00 AM Pap smear auto thin prep w manual MD screen 07/24/2021 12:00 AM TRICHOMONAS AMPLIFIED 07/24/2021 12:00 AM TRICHOMONAS AMPLIFIED 07/24/2021 12:00 AM Medications Active Name Start Date [...] oral route once daily for 84 days Name Start Date Expiration Date SIG Comments [...] route once daily for 30 days ondansetron 8 mg oral tablet,disintegrating 04/10/20202019 Take one tablet [...] HC BMI BSA BMI Percentile O2 Sat(%) 07/23/2021 2:03:00 PM 115 mm[Hg] 80 mm[Hg] 76 {beats}/min 98.2 F 20 0 lbs 69 in 29.5345 kg/m2 2.1015 m2 07/09/2021 2:39:00 PM 116 mm[Hg] 72 mm[Hg] 80 {beats}/min 98.8 F 20 2 lbs 69 in 29.83 kg/m2 2.11 m2 06/27/2021 9:40:00 AM 110 mm[Hg] 60 mm[Hg] 63 {beats}/min 98.418 F 198 lbs 69 in 29.2392 kg/m2 2.091 m2 98 % 05/31/2021 12:00:00 PM 118 mm[Hg] 70 mm[Hg] 72 {beats}/min 18 rpm 98.1 F 204 lbs 69 in 30.13 kg/m2 2.12 m2 96 % 05/17/2021 11:49:00 AM 124 mm[Hg] 70 mm[Hg] 68 {beats}/min 18 rpm 98.6 F 203 lbs 69 in 29.9776 kg/m2 2.1172 m2 98 % 02/25/2021 12:11:00 PM 122 mm[Hg] 72 mm[Hg] 80 {beats}/min 18 rpm 98.8 F 197.5 lbs 69 in 29.17 kg/m2 2.09 m2 98 % 01/17/2021 1:43:00 PM 89 {beats}/min 98.8 F 97 % 01/15/2021 11:29:00 AM 124 mm[Hg] 66 mm[Hg] 70 {beats}/min 18 rpm 97.5 F 200 lbs 69 in 29.5345 kg/m2 2.1015 m2 97 % 11/30/2020 4:48:00 [...] Description Comments Tobacco Never smoker 01/15/2021 - 2020 - 10/04/2020 - 09/30/2019 - 07/22/2019 - [...] Returned 12/16/2018 12:00 AM IADNA-DNA/RNA PROBE TQ 12- Returned 12/31/2018 12:00 AM COMPREHEN METABOLIC PANEL [...] Returned 05/31/2021 12:00 AM IADNA-DNA/RNA PROBE TQ 12-25 Returned 06/12/2021 12:00 AM ACUTE HEPATITIS PANEL Returned 07/09/2021 12:00 AM ASSAY OF GONADOTROPIN (FSH) Returned 07/09/2021 12:00 AM ASSAY OF GONADOTROPIN (LH) Returned 07/09/2021 12:00 AM ASSAY THYROID STIM HORMONE Returned Results Summary Date and Description Results 07/22/2019 [...] Trace 06/20/2020 3:47 PM Clarity Ur Cloudy Urine-[place] r Yellow Glucose Ur-sCnc Neg Bilirub Ur Ql Neg Ketones Ur Ql Strip Trace Sp Gr Ur Qn 1.015 Hgb Ur Ql Strip Trace-Intact pH Ur-LsCnc 6,0 Prot Ur Ql Strip 100 Urobilinogen Ur-mCnc 0.2 Nitrite Ur Ql Strip Neg WBC # Ur Moderate 08/08/2020 1:58 PM Test, Urine negati ve 01/17/2021 9:54 AM [id number] NOT DETECTED History Of Immunizations Name Date Admin Mfg Name Mfg Code Trade Name Lot# Route Inj Vis Given Vis Pub CVX Influenza 08/16/2018 GlaxoSmithKline SKB FLULAVAL [id number] Intramuscu lar Left Deltoid 08/16/2018 10/26/2021 158 Influenza 07/22/2019 GlaxoSmithKline SKB FLULAVAL [id number] Intramuscul ar Left Deltoid 07/22/2019 10/26/2021 150 HPV 07/22/2019 Merck & Co., Inc. MSD Gardasil 9 [id number] Intramusc ular Left Deltoid 07/22/2019 10/26/2021 165 HPV 07/22/2019 Merck & Co., Inc. MSD Gardasil 9 [id number] Intramusc ular Left Deltoid 07/22/2019 10/26/2021 165 Meningococcal 07/22/2019 [employer]. NOV MENVEO [id number] Intramuscular Right Arm 07/22/2019 10/26/2021 136 HPV 08/22/2019 Merck & Co., Inc. MSD GARDASIL [id number] Intramuscu lar Right Arm 08/22/2019 10/26/2021 165 HPV 08/22/2019 Merck & Co., Inc. MSD Gardasil 9 [id number] Intramus cular Left Arm 08/24/2019 10/26/2021 165 HPV 08/22/2019 Merck & Co., Inc. MSD Gardasil 9 [id number] Intramus cular Left Arm 08/24/2019 10/26/2021 165 HPV 01/27/2020 Merck & Co., Inc. MSD Gardasil 9 [id number] Intramuscu lar Left Deltoid 01/27/2020 10/26/2021 165 Influenza 07/23/2020 GlaxoSmithKline SKB FLULAVAL [id number] Intramuscul ar Left Arm 07/23/2020 10/26/2021 158 Covid-19 10/24/2020 Moderna [employer] Inc. MOD Moderna COVID-19 Vacci ne [id number] Intramuscular Left Arm 10/24/2020 09/25/2020 207 Covid-19 11/21/2020 [employer] [place] Moderna COVID-19 Vaccin e [id number] Intramuscular Right Deltoid 11/21/2020 09/25/2020 207 History of Past Illness Name Date of [...] 2021 2:06PM Hyperhidrosis Jul 23 2021 2:06PM Payers Insurance Name Company Name Plan Name Plan Number Policy Number Carlos cy Group [id number] Occupational Medicine [id number] N/A History of Encounters Visit Date Visit Type Provider 07/23/2021 Office visit Sharon ruelas SQL SSRS DEVELOPER 07/10/2021 [facility] Dr[facility] Billy Rogers MD 07/09/2021 Office visit Sharon ruelas SQL SSRS DEVELOPER 06/27/[address] Billy Rogers MD 05/31/2021 Office visit Odilia COREAS RN 05/17/2021 Office visit Odilia COREAS RN 02/25/2021 Office visit Maricel Almanzar APR N 01/17/2021 Office visit Riya COREAS RN 01/15/2021 Office visit Odilia COREAS RN 11/30/2020 Office visit Riya CROEAS RN 11/21/2020 Nurse visit Raj Moya MD 10/30/2020 Office visit Riya COREAS RN 10/24/2020 Nurse visit Raj Moya MD 10/04/2020 Office visit Odilia COREAS RN 09/03/2020 Office visit Odilia COREAS RN 08/08/2020 Office visit Sharon Gil Negrito n SQL SSRS DEVELOPER 07/23/2020 Nurse visit Odilia COREAS RN 06/27/2020 Office visit Sharon HerreraRupal ruelas SQL SSRS DEVELOPER 06/20/2020 Office visit Riya COREAS RN 05/14/2020 [...] COREAS RN 06/14/2019 Office visit Leslie Kwok SQL SSRS DEVELOPER 05/05/2019 Office visit Leslie Kwok SQL SSRS DEVELOPER 02/15/2019 Office visit Leslie Kwok SQL SSRS DEVELOPER 02/15/[address] Jessica Mera er [...]
--- OUTSIDE RECORDS SUMMARY | 2021-08-26 19:28 | XMS REPORT ---
Author Author Corina Campa Organization [facility] Address [address] [place], [place] [address] Care Team Providers Care Incendiaries Supervisor Name Role Phone Odilia Campa PCP Odilia [...] Trace 06/20/2020 3:47 PM Clarity Ur Cloudy Urine-[place] r Yellow Glucose Ur-sCnc Neg Bilirub Ur Ql Neg Ketones Ur Ql Strip Trace Sp Gr Ur Qn 1.015 Hgb Ur Ql Strip Trace-Intact pH Ur-LsCnc 6,0 Prot Ur Ql Strip 100 Urobilinogen Ur-mCnc 0.2 Nitrite Ur Ql Strip Neg WBC # Ur Moderate 08/08/2020 1:58 PM Test, Urine negati ve 01/17/2021 9:54 AM [id number] NOT DETECTED 07/09/2021 3:30 PM FSH 1.4 [...] [employer]ck & [employer]., Inc. MSD Gardasil 9 [id number] Intramusc ular Left Deltoid 07/22/2019 10/26/2021 165 HPV 07/22/2019 Merck & Co., Inc. MSD Gardasil 9 [id number] Intramusc ular Left Deltoid 07/22/2019 10/26/2021 165 Meningococcal 07/22/2019 [employer]. NOV MENVEO [id number] Intramuscular Right Arm 07/22/2019 10/26/2021 136 HPV 08/22/2019 Merck & Co., Inc. MSD GARDASIL [id number] Intramuscu lar Right Arm 08/22/2019 10/26/2021 165 HPV 08/22/2019 Merck & Co., Inc. MSD Gardasil 9 [id number] Intramus cular Left Arm 08/24/2019 10/26/2021 165 HPV 08/22/2019 Merck & Co., Inc. MSD Gardasil 9 [id number] Intramus cular Left Arm 08/24/2019 10/26/2021 165 HPV 01/27/2020 Merck & Co., Inc. MSD Gardasil 9 [id number] Intramuscu lar Left Deltoid 01/27/2020 10/26/2021 165 Influenza 07/23/2020 GlaxoSmithKline SKB FLULAVAL [id number] Intramuscul ar Left Arm 07/23/2020 10/26/2021 158 Covid-19 10/24/2020 Moderna [employer] MOD Moderna COVID-19 Vacci ne [id number] Intramuscular Left Arm 10/24/2020 09/25/2020 207 Covid-19 11/21/2020 Moderna [employer] MOD Moderna COVID-19 Vaccin e [id number] Intramuscular Right Deltoid 11/21/2020 09/25/2020 207 Influenza [...] cy Group Number Start Date BCBS Bcbs [facility] [id number] N/ A [facility] Occupational Medicine [id number] N/A History of Encounters Visit Date Visit Type Provider 08/13/2021 Office visit Odilia COREAS RN 07/23/2021 Office visit Sharon ruelas MULTIMEDIA TECHNICIAN 07/10/[address] [facility] [address] Billy Rogers MD 07/09/2021 Office visit Sharon ruelas MULTIMEDIA TECHNICIAN 06/27/[address] Billy Rogers MD [...] COREAS RN 08/08/2020 Office visit Sharon ruelas MULTIMEDIA TECHNICIAN 07/23/2020 Nurse visit Odilia COREAS RN 06/27/2020 Office visit Sharon ruelas MULTIMEDIA TECHNICIAN 06/20/2020 Office visit Riya COREAS RN 05/14/2020 [...] COREAS RN 06/14/2019 Office visit Leslie Sundar MULTIMEDIA TECHNICIAN 05/05/2019 Office visit Leslie Sundar MULTIMEDIA TECHNICIAN 02/15/2019 Office visit Leslie Kwok MULTIMEDIA TECHNICIAN 02/15/[address] Jessica Mera er [...]
--- OUTSIDE RECORDS SUMMARY | 2021-08-26 19:29 | XMS REPORT ---
Author Author Corina Mitchell Organization [facility] Address [address] [place], [place] [address] Care Team Providers Care Delivery Mgr Name Role Phone Sharon Mitchell PCP Odilia Campa PreferredProvider Allergies and Adverse Reactions Name Reaction Notes hydrocodone-acetaminophen vomiting Plan of Treatment Planned Activity Comments Planned Date Planned Time Plan/Goal Injection Of Immunization, Initial 07/23/2020 12:00 AM Medications Active Name Start Date Estimated Completion Date SIG Co mments citalopram 40 mg oral tablet 03/15/2021 07/13/2021 alberto e 1 tablet (40 mg) by oral route once daily for 30 days Pantoprazole Sodium 40 MG Oral Tablet Delayed [...] 1 tab let by oral route daily Solosec 2 gram oral granules del release in packet 07/09/2021 07/10/2021 take 1 packet (2 gram) and sprinkle contents onto applesauce, yogurt or pudding and take within 30 minutes by oral route once for 1 day Name Start Date Expiration Date SIG Comments [...] by oral route once for 1 day Sprintec (28) 0.25-35 mg-mcg oral tablet 06/27/2020 take 1 tablet by oral route once daily for 84 days trazodone 50 mg oral tablet 10/04/2020 02/01/2021 [...] 3 times per day for 14 days Discontinued Name Start Date Discontinued Date [...] Citalopram Hydrobromide 20 MG Oral Tablet 08/06/2020 Take 1 tablet by mouth once daily [...] HC BMI BSA BMI Percentile O2 Sat(%) 07/09/2021 2:39:00 PM 116 mm[Hg] 72 mm[Hg] [...] Trace 06/20/2020 3:47 PM Clarity Ur Cloudy Urine-[place] r Yellow Glucose Ur-sCnc Neg Bilirub Ur Ql Neg Ketones Ur Ql Strip Trace Sp Gr Ur Qn 1.015 Hgb Ur Ql Strip Trace-Intact pH Ur-LsCnc 6,0 Prot Ur Ql Strip 100 Urobilinogen Ur-mCnc 0.2 Nitrite Ur Ql Strip Neg WBC # Ur Moderate 08/08/2020 1:58 PM Test, Urine negati ve 01/17/2021 9:54 AM [id number] NOT DETECTED History Of Immunizations Name Date Admin Mfg Name Mfg Code Trade Name Lot# Route Inj Vis Given Vis Pub CVX Influenza 08/16/2018 GlaxoSmithKline SKB FLULAVAL [id number] Intramuscu lar Left Deltoid 08/16/2018 10/26/2020 158 Influenza 07/22/2019 GlaxoSmithKline SKB FLULAVAL [id number] Intramuscul ar Left Deltoid 07/22/2019 10/26/2020 150 HPV 07/22/2019 Merck & Co., Inc. MSD Gardasil 9 [id number] Intramusc ular Left Deltoid 07/22/2019 10/26/2020 165 HPV 07/22/2019 Merck & Co., Inc. MSD Gardasil 9 [id number] Intramusc ular Left Deltoid 07/22/2019 10/26/2020 165 Meningococcal 07/22/2019 [employer]. NOV MENVEO [id number] Intramuscular Right Arm 07/22/2019 10/26/2020 136 HPV 08/22/2019 Merck & Co., Inc. MSD GARDASIL [id number] Intramuscu lar Right Arm 08/22/2019 10/26/2020 165 HPV 08/22/2019 Merck & Co., Inc. MSD Gardasil 9 [id number] Intramus cular Left Arm 08/24/2019 10/26/2020 165 HPV 08/22/2019 Merck & Co., Inc. MSD Gardasil 9 [id number] Intramus cular Left Arm 08/24/2019 10/26/2020 165 HPV 01/27/2020 Merck & Co., Inc. MSD Gardasil 9 [id number] Intramuscu lar Left Deltoid 01/27/2020 10/26/2020 165 Influenza 07/23/2020 [facility] FLULAVAL [id number] Intramuscul ar Left Arm 07/23/2020 10/26/2020 158 Covid-19 10/24/2020 Moderna [employer] MOD Moderna COVID-19 Vacci ne [id number] Intramuscular Left Arm 10/24/2020 09/25/2020 207 Covid-19 11/21/2020 [employer] MOD Moderna COVID-19 Vaccin e [id number] Intramuscular Right Deltoid 11/21/2020 09/25/2020 207 History [...] ses classified elsewhere Jul 09 2021 2:44PM Payers Insurance Name Company Name Plan Name Plan Number Policy Number Carlos cy Group Number Start Date BCBS Bcbs [facility] [id number] N/ A [facility] Occupational Medicine [id number] N/A History of Encounters Visit Date Visit Type Provider 07/09/2021 Office visit Sharon ruelas AUTOMATION TEST ENGINEER 06/27/[address] Billy Rogers MD [...] COREAS RN 08/08/2020 Office visit Sharon ruelas AUTOMATION TEST ENGINEER 07/23/2020 Nurse visit Odilia COREAS RN 06/27/2020 Office visit Sharon ruelas AUTOMATION TEST ENGINEER 06/20/2020 Office visit Riya COREAS RN 05/14/2020 [...] Odilia COREAS RN 12/02/2019 Office visit Odilia Campa AP RN 10/31/2019 Office visit Odilia Campa AP RN 10/10/2019 Nurse visit Odilia Campa AP RN 09/30/2019 Office visit Odilia Campa AP RN 08/24/2019 Office visit Odilia Campa AP RN 08/22/2019 Nurse visit Odilia Campa AP RN 07/22/2019 Office visit Odilia Campa AP RN 06/14/2019 Office visit Leslie Kwok AUTOMATION TEST ENGINEER 05/05/2019 Office visit Leslie Kwok AUTOMATION TEST ENGINEER 02/15/2019 Office visit Leslie Kwok AUTOMATION TEST ENGINEER 02/15/[address] Jessica Mera er [...]
--- OUTSIDE RECORDS SUMMARY | 2021-08-26 19:29 | XMS REPORT ---
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 Name Role Phone Sharon Mitchell PCP Odilia Campa PreferredProvider Allergies and Adverse Reactions Name Reaction Notes hydrocodone-acetaminophen vomiting Plan of Treatment Planned Activity Comments Planned Date Planned Time Plan/Goal Injection Of Immunization, Initial 07/23/2020 12:00 AM FSH + LH ser 07/09/2021 12:00 AM FSH + LH ser 07/09/2021 12:00 AM TSH W/RFLX T4 FREE 07/09/2021 12:00 AM Medications Active Name Start Date [...] Returned 05/31/2021 12:00 AM IADNA-DNA/RNA PROBE TQ 12- Returned 06/12/2021 12:00 AM ACUTE HEPATITIS PANEL Returned Results Summary Date and Description Results 07/22/2019 11:58 AM WBC 4.4 RBC 4.90 HGB 14.60 g /dLHCT 43.70 %MCV 89.0 fLMCH 29.80 [facility] 33.40 g/dLRDW SD 38 fLRDW CV 11.70 [...] Trace 06/20/2020 3:47 PM Clarity Ur Cloudy Urine-[place] r Yellow Glucose Ur-sCnc Neg Bilirub Ur Ql Neg Ketones Ur Ql Strip Trace Sp Gr Ur Qn 1.015 Hgb Ur Ql Strip Trace-Intact pH Ur-LsCnc 6,0 Prot Ur Ql Strip 100 Urobilinogen Ur-mCnc 0.2 Nitrite Ur Ql Strip Neg WBC # Ur Moderate 08/08/2020 1:58 PM Test, Urine negati ve 01/17/2021 9:54 AM [id number] NOT DETECTED History Of Immunizations Name Date Admin Mfg Name Mfg Code Trade Name Lot# Route Inj Vis Given Vis Pub CVX Influenza 08/16/2018 GlaxoSmithKline SKB FLULAVAL [id number] Intramuscu lar Left Deltoid 08/16/2018 10/26/2020 158 Influenza 07/22/2019 GlaxoSmithKline SKB FLULAVAL [id number] Intramuscul ar Left Deltoid 07/22/2019 10/26/2020 150 HPV 07/22/2019 Merck & Co., Inc. MSD Gardasil 9 [id number] Intramusc ular Left Deltoid 07/22/2019 10/26/2020 165 HPV 07/22/2019 [employer]ck [employer] Co., Inc. MSD Gardasil 9 [id number] Intramusc ular Left Deltoid 07/22/2019 10/26/2020 165 Meningococcal 07/22/2019 [employer]. NOV MARGIEVEO [id number] Intramuscular Right Arm 07/22/2019 10/26/2020 136 HPV 08/22/2019 Merck & Co., Inc. MSD GARDASIL [id number] Intramuscu lar Right Arm 08/22/2019 10/26/2020 165 HPV 08/22/2019 [employer]ck [employer] Co[employer] Inc. MSD Gardasil 9 [id number] Intramus cular Left Arm 08/24/2019 10/26/2020 165 HPV 08/22/2019 [employer]ck [employer] Co[employer]. MSD Gardasil 9 [id number] Intramus cular Left Arm 08/24/2019 10/26/2020 165 HPV 01/27/2020 [employer]ck [employer]. MSD Gardasil 9 [id number] Intramuscu lar Left Deltoid 01/27/2020 10/26/2020 165 Influenza 07/23/2020 GlaxoSmithKline SKB FLULAVAL [id number] Intramuscul ar Left Arm 07/23/2020 10/26/2020 158 Covid-19 10/24/2020 Moderna [employer] MOD Moderna COVID-19 Vacci ne [id number] Intramuscular Left Arm 10/24/2020 09/25/2020 207 Covid-19 11/21/2020 [employer] MOD Moderna COVID-19 Vaccin e [id number] Intramuscular Right Deltoid 11/21/2020 09/25/2020 207 History [...] cy Group Number Start Date BCBS [employer] [place] [id number] N/ A [facility] Occupational Medicine [id number] N/A History of Encounters Visit Date Visit Type Provider 07/09/2021 Office visit Sharon ruelas GLOBAL HUMAN RESOURCES DIRECTOR 06/27/[address] Billy Rogers MD [...] COREAS RN 08/08/2020 Office visit Sharon ruelas GLOBAL HUMAN RESOURCES DIRECTOR 07/23/2020 Nurse visit Odilia COREAS RN 06/27/2020 Office visit Sharon ruelas GLOBAL HUMAN RESOURCES DIRECTOR 06/20/2020 Office visit Riya COREAS RN 05/14/2020 [...] Odilia COREAS RN 09/30/2019 Office visit Odilia Campa AP RN 08/24/2019 Office visit Odilia Campa AP RN 08/22/2019 Nurse visit Odilia COREAS RN 07/22/2019 Office visit Odilia Campa AP RN 06/14/2019 Office visit Leslie Kwok GLOBAL HUMAN RESOURCES DIRECTOR 05/05/2019 Office visit Leslie Kwok GLOBAL HUMAN RESOURCES DIRECTOR 02/15/2019 Office visit Leslie Kwok GLOBAL HUMAN RESOURCES DIRECTOR 02/15/[address] Jessica Mera er [...] Mera er DO 06/02/[address] Jesisca Mera er DO 04/08/[address] [...]
--- OUTSIDE RECORDS SUMMARY | 2021-08-26 19:29 | XMS REPORT ---
Author Corina Davies Organization [facility] Address [address] [place], [place] [id number] Care Team Providers Care Estate Tax Examiner Name Role Phone Sharon Mitchell PCP Odilia [...] 1 tab let by oral route daily Flagyl 500 mg oral tablet 07/10/2021 07/17/2021 take 1 tablet (500 mg) by oral route 2 times per day for 7 days Sprintec (28) 0.25-35 mg-mcg oral tablet 07/10/2021 10/02/20 take 1 tablet by oral route once daily for 84 days citalopram 40 mg oral tablet 07/10/2021 11/07/2021 alberto e 1 tablet (40 mg) by oral route once daily for 30 days Name Start Date Expiration Date SIG [...] by oral route once for 1 day Discontinued Name Start Date Discontinued Date SIG [...] rpm 98.1 F 191.5 lbs 69 in 28.28 kg/m2 2.06 m2 0 % 96 % 09/03/2020 4:04:00 PM 110 mm[Hg] 70 mm[Hg] 112 {beats}/min 18 rpm 98.6 F 191.5 lbs 69 in 28.2793 kg/m2 2.0564 m2 0 % 98 % 08/08/2020 1:31:00 PM 133 mm[Hg] 74 mm[Hg] 60 {beats}/min 97.9 F 188.5 lbs 69 in 27.84 kg/m2 2.04 m2 89 % 06/27/2020 9:14:00 AM 120 mm[Hg] 74 mm[Hg] 82 {beats}/min 97.2 F 184 lbs 69 in 27.1718 kg/m2 2.0157 m2 0 % 06/20/2020 3:40:00 PM 122 mm[Hg] 78 mm[Hg] 98 {beats}/min 18 rpm 98.7 F 188.375 lbs 60 in 36.79 kg/m2 1.90 m2 0 % 100 % 04/17/2020 11:27:00 AM 116 mm[Hg] 66 mm[Hg] 79 {beats}/min 16 rpm 97.3 F 188 lbs 69 in 27.7625 kg/m2 2.0375 m2 89.1 % 98 % 04/10/2020 11:18:00 AM 126 mm[Hg] 70 mm[Hg] 67 {beats}/min 18 rpm 97.7 F 188.25 lbs 69 in 27.80 kg/m2 2.04 m2 89.3 % 100 % 03/27/2020 11:41:00 AM 104 mm[Hg] 60 mm[Hg] 80 {beats}/min 16 rpm 97.7 F 189 lbs 69 in 27.9101 kg/m2 2.0429 m2 89.6 % 97 % 03/15/2020 12:08:00 [...] Trace 06/20/2020 3:47 PM Clarity Ur Cloudy Urine-[place] r Yellow Glucose Ur-sCnc Neg Bilirub Ur Ql Neg Ketones Ur Ql Strip Trace Sp Gr Ur Qn 1.015 Hgb Ur Ql Strip Trace-Intact pH Ur-LsCnc 6,0 Prot Ur Ql Strip 100 Urobilinogen Ur-mCnc 0.2 Nitrite Ur Ql Strip Neg WBC # Ur Moderate 08/08/2020 1:58 PM Test, Urine negati ve 01/17/2021 9:54 AM [id number] NOT DETECTED History Of Immunizations Name Date Admin Mfg Name Mfg Code Trade Name Lot# Route Inj Vis Given Vis Pub CVX Influenza 08/16/2018 [employer] SKB FLULAVAL [id number] Intramuscu lar Left Deltoid 08/16/2018 10/26/2021 158 Influenza 07/22/2019 [facility] FL[facility] [id number] Intramuscul ar Left Deltoid 07/22/2019 10/26/2021 150 HPV 07/22/2019 Merck & Co., Inc. MSD Gardasil 9 [id number] Intramusc ular Left Deltoid 07/22/2019 10/26/2021 165 HPV 07/22/2019 [employer]ck [employer] Co., [employer] MSD Gardasil 9 [id number] Intramusc ular Left Deltoid 07/22/2019 10/26/2021 165 Meningococcal 07/22/2019 [employer]. NOV MENVEO [id number] Intramuscular Right Arm 07/22/2019 10/26/2021 136 HPV 08/22/2019 Merck & Co., Inc[employer] MSD GARDASIL [id number] Intramuscu lar Right Arm 08/22/2019 10/26/2021 165 HPV 08/22/2019 [employer]ck [employer] Co., Inc[employer] MSD Gardasil 9 [id number] Intramus cular Left Arm 08/24/2019 10/26/2021 165 HPV 08/22/2019 [employer]ck [employer] Co[employer] MSD Gardasil 9 [id number] Intramus cular Left Arm 08/24/2019 10/26/2021 165 HPV 01/27/2020 Merck & Co., Inc[employer] MSD Gardasil 9 [id number] Intramuscu lar Left Deltoid 01/27/2020 10/26/2021 165 [facility]/23/2020 [facility] FLUL[facility] [id number] Intramuscul ar Left Arm 07/23/2020 10/26/2021 158 Covid-19 10/24/2020 Moderna [employer] MOD Moderna COVID-19 Vacci ne [id number] Intramuscular Left Arm 10/24/2020 09/25/2020 207 Covid-19 11/21/2020 [employer] MOD Moderna COVID-19 Vaccin e [id number] Intramuscular Right Deltoid 11/21/2020 09/25/2020 207 History [...] 8:10AM Diarrhea Dec 13 2018 8:10AM Vomiting b 2018 9:54AM Nausea Dec 15 2018 9:54AM [...] 2:44PM Heat intolerance Jul 09 2021 2:44PM Payers Insurance Name Company Name Plan Name Plan Number Policy Number Carlos cy Group Number Start Date BCBS Bcbs [facility] [id number] N/ A [facility] Occupational Medicine [id number] N/A History of Encounters Visit Date Visit Type Provider 07/09/2021 Office visit Sharon ruelas LEATHER GOODS II ASSEMBLER 06/27/[address] Billy Rogers MD [...] COREAS RN 08/08/2020 Office visit Sharon ruelas LEATHER GOODS II ASSEMBLER 07/23/2020 Nurse visit Odilia COREAS RN 06/27/2020 Office visit Sharon ruelas LEATHER GOODS II ASSEMBLER 06/20/2020 Office visit Riya COREAS RN 05/14/2020 [...] COREAS RN 06/14/2019 Office visit Leslie Sundar LEATHER GOODS II ASSEMBLER 05/05/2019 Office visit Leslie Sundar LEATHER GOODS II ASSEMBLER 02/15/2019 Office visit Leslie Sundar LEATHER GOODS II ASSEMBLER 02/15/[address] Jessica Mera er [...]
[2021-08-26] MEDS ORDERED: QUET25TA35 (19:33)
[2021-08-26] MEDS ORDERED: NORG1TAB14 (19:33)
[2021-08-26] MEDS ORDERED: PANT40TA52 (19:33)
[2021-08-26] MEDS ORDERED: CITA40TA11 (19:33)
[2021-08-26] MEDS ORDERED: MONT10TA32 (19:33)
[2021-08-26] MEDS ORDERED: ONDANSETRON 4 MG (ZOFRAN) ORAL DISSOLVE TAB PO ONE (19:45)
--- NOTE | 2021-08-26 19:48 | Diagnostic Imaging Report ---
EXAMINATION: Right foot 3 views HISTORY: Right ankle pain COMPARISON: None available. FINDINGS: Alignment is normal. No fracture is seen. Joint spaces are normal. IMPRESSION: 1. No fracture. Dictated by: Dictated on workstation # [id number]
--- NOTE | 2021-08-26 19:51 | Diagnostic Imaging Report ---
EXAMINATION: Right ankle 3 views HISTORY: Pain right ankle COMPARISON: None available. FINDINGS: There is a small ossific density adjacent to the medial malleolus suggestive of a small avulsion fracture. There is mild overlying swelling IMPRESSION: Small avulsion fracture of the medial malleolus. Dictated by: Dictated on workstation # [id number]
--- NOTE | 2021-08-26 19:57 | ED Lower Extremity ---
General Chief Complaint: Lower Extremity Stated Complaint: R ANKLE INJ Nursing Triage Note: twisted right ankle approx. 1830. c/o right medial pain radiating to toes, nausea, headache. denies other injury. Source: patient Exam Limitations: no limitations (STEVIE MACARIO APRN) History of Present Illness Date Seen by Provider: Aug 26, 2021 Time Seen by Provider: 19:54 Initial Comments Is to ER with right medial ankle pain with a headache and nausea. She states this pain occurred when she twisted her ankle during a fall during volleyball but is adamant she did not hit her head. Onset: just prior to arrival Severity: moderate Pain/Injury Location: right leg Method of Injury: fell Modifying Factors: Worse With Movement (STEVIE MACARIO APRN) Allergies and Home Medications Allergies Coded Allergies: No Known Drug Allergies (Unverified , 08/26/21) Patient Home Medication List Home Medication List Reviewed: Yes (STEVIE MACARIO APRN) Citalopram Hydrobromide (Citalopram HBr) 40 Mg Tablet, (Reported) Entered as Reported by: MEDHAT MARADIAGA on 08/26/211932 Last Action: New Order Montelukast Sodium (Montelukast Sodium) 10 Mg Tablet, (Reported) Entered as Reported by: MEDHAT MARADIAGA on 08/26/211932 Last Action: New Order Norgestimate-Ethinyl Estradiol (Sprintec 28 Day Tablet) 1 Each Tablet, (Reported) Entered as Reported by: MEDHAT MARADIAGA on 08/26/211932 Last Action: New Order Pantoprazole Sodium (Pantoprazole Sodium) 40 Mg Tablet., (Reported) Entered as Reported by: MEDHAT MARADIAGA on 08/26/211932 Last Action: New Order Quetiapine Fumarate (Quetiapine Fumarate) 25 Mg Tablet, (Reported) Entered as Reported by: MEDHAT MARADIAGA on 08/26/211932 Last Action: New Order Review of Systems Constitutional: see HPI EENTM: see HPI Respiratory: no symptoms reported Cardiovascular: no symptoms reported Genitourinary: no symptoms reported Musculoskeletal: see HPI Skin: no symptoms reported Psychiatric/Neurological: No Symptoms Reported (STEVIE MACARIO APRN) Past Neglgtf-Xhasbp-Fwzpns Hx Patient Social History Tobacco Use?: No Substance use?: No Alcohol Use?: No Pt feels they are or have been: No (STEVIE MACARIO APRN) Immunizations Up To Date First/Initial COVID19 Vaccinat: 10/14 Second COVID19 Vaccination Foster: 11/15 COVID19 Vaccine Freelance Copywriter: kathrin (STEVIE MACARIO APRN) Past Medical History Surgery/Hospitalization HX: anxiety, t/a, Last Menstrual Period: Aug 26, 2021 (STEVIE MACARIO APRN) Physical Exam Vital Signs Vital Signs - First Documented 08/26/21 19:27 Temp 36.5 Pulse 78 Resp 16 B/P (MAP) 106/72 (83) Pulse Ox 96 O2 Delivery Room Air (FACUNDOFADI K DO) Vital Signs Capillary Refill : Less Than 3 Seconds (STEVIE MACARIO APRN) Height, Weight, BMI Height: '" Weight: lbs. oz. kg; 28.00 BMI Method: General Appearance: WD/WN, no apparent distress HEENT: PERRL/EOMI, normal ENT inspection Respiratory: no respiratory distress, no accessory muscle use Hips: bilateral hip non-tender, bilateral hip normal inspection, bilateral hip normal range of motion Legs: bilateral leg non-tender, bilateral leg normal inspection, bilateral leg normal range of motion Knees: bilateral knee non-tender, bilateral knee normal inspection, bilateral knee normal range of motion Ankles: right ankle other (Medial malleolus tenderness to palpation without obvious swelling.) Neurologic/Psychiatric: alert, normal mood/affect, oriented x 3 Skin: normal color, warm/dry (STEVIE MACARIO APRN) Progress/Results/Core Measures Results/Orders Medications Given in ED Current Medications Medications Dose Ordered Sig/Dank Route Start Time Stop Time Status Last Admin Dose Admin Acetaminophen/ Hydrocodone Bitart 1 ea Q4H PRN PO 08/26/21 20:15 08/26/21 20:24 DC 08/26/21 20:23 1 EA Ondansetron HCl 8 mg ONCE ONCE PO 08/26/21 19:45 08/26/21 19:46 DC 08/26/21 19:41 8 MG (FACUNDO,FAID K DO) Vital Signs/I&O 08/26/21 08/26/21 19:27 20:24 Temp 36.5 36.5 Pulse 78 78 Resp 16 16 B/P (MAP) 106/72 (83) 106/72 Pulse Ox 96 96 O2 Delivery Room Air Room Air (FADI LOREDO DO) Blood Pressure Mean: 83 Departure Impression Primary Impression: Sprain and strain of ankle Disposition: 01 HOME, SELF-CARE Condition: Stable Departure-Patient Inst. Decision time for Depature: 19:57 (STEVIE MACARIO APRN) Referrals: ERNESTINA CHIN MD [facility] (PCP) Primary Care Physician YASSINE CONNOR MD Patient Instructions: Foot Avulsion Fracture Add. Discharge Instructions: 1. Ice pack to the area. Tylenol and ibuprofen for pain control in addition to the prescribed pain medication. Return to ER for any worsening. Follow-up with orthopedics. Crutches as needed for pain with weightbearing. Wear the boot at all times when you are up walking. You can take it off while at rest. All discharge instructions reviewed with patient and/or family. Voiced understanding. Work/School Note: Work Release Form Date Seen in the Emergency Department: Aug 26, 2021 Return to Work: Aug 28, 2021 ATTENDING PHYSICIAN NOTE: I WAS PHYSICALLY PRESENT ER PHYSICIAN WHEN THIS PATIENT WAS IN ER, BUT I WAS NOT INVOLVED IN DECISION MAKING OR ANY CARE OF THIS PATIENT. (FADI LOREDO DO) STEVIE MACARIO APRN Aug 26, 2021 19:57 FADI LOREDO DO Aug 27, 2021 03:27
[2021-08-26 20:24] VITALS: BP 106/72
== END 2021-08-26 20:24 | disposition home or self-care (01) ==
LOC: ER 19:24
DX: S93.401A Sprain of unspecified ligament of right ankle, initial encounter (principal); F41.9 Anxiety disorder, unspecified; Z79.899 Other long term (current) drug therapy; X50.1XXA Overexertion from prolonged static or awkward postures, initial encounter; Y93.68 Activity, volleyball (beach) (court)
CPT/HCPCS: 73610; 73630

== ENCOUNTER → 2021-08-29 | Outpatient (CLI) | payer BC, OTHER ==
[~2021-08-29] MED LIST: CITA40TA11; MONT10TA32; NORG1TAB14; PANT40TA52; QUET25TA35
== END ==
LOC: ORTHO 11:26
PROVIDERS: ATTEND Orthopaedic Surgery
DX: S93.401A Sprain of unspecified ligament of right ankle, initial encounter (principal); X58.XXXA Exposure to other specified factors, initial encounter
CPT/HCPCS: 99202

== ENCOUNTER → 2021-10-10 | Outpatient (CLI) | payer BC, OTHER ==
[~2021-10-10] MED LIST changes: -CITA40TA11; +CITA40TA13; +MONT-40; -MONT10TA32
== END ==
LOC: ORTHO 15:51
PROVIDERS: ATTEND Orthopaedic Surgery
DX: S93.401D Sprain of unspecified ligament of right ankle, subsequent encounter (principal); X58.XXXD Exposure to other specified factors, subsequent encounter
CPT/HCPCS: 99212

== ENCOUNTER → 2021-11-25 | Outpatient (CLI) | payer BC, OTHER ==
--- NOTE | 2021-11-25 16:49 | Diagnostic Imaging Report ---
Indication: Lower respiratory infection, Covid PA and lateral chest Heart size and pulmonary vascularity are normal. Lungs are clear. There are no effusions or pneumothoraces. IMPRESSION: No acute abnormalities in the chest Dictated by: Dictated on workstation # [id number]
== END ==
LOC: RAD 16:17
PROVIDERS: ATTEND Internal Medicine
DX: J20.9 Acute bronchitis, unspecified (principal)
CPT/HCPCS: 71046